=== PATIENT | female | born 1945 | race Caucasian/White ===

== ENCOUNTER → 2018-02-24 | Outpatient (CLI) | payer MEDICARE, OTHER ==
[~2018-02-24] MED LIST: AC325T PO; CALC-250 PO; CLCX200C PO; D50KC PO; DCS100C PO; DPH25C PO; MIRALAX; ORPH100T PO; OXYC-12 PO; OXYC10TA63 PO; POLY119P PO; POLY17PO23 GT; SENN1TAB76 PO; WRF5T PO
--- NOTE | 2018-02-24 15:35 | Diagnostic Imaging Report ---
INDICATION: Osteoporosis. COMPARISON is made with prior exam from 08/21/2011. FINDINGS: Bone mineral analysis of the lumbar spine was performed. The hips were not performed due to hardware. Bone mineral density of the lumbar spine at L2 to L4 is 0.869 with a T score of -2.8. This compares with 0.878 and -2.7. IMPRESSION: Osteoporosis of the lumbar spine. Dictated by: Dictated on workstation # [id number]
== END ==
LOC: RAD 09:18
PROVIDERS: ATTEND Internal Medicine
DX: M81.0 Age-related osteoporosis without current pathological fracture (principal)
CPT/HCPCS: 77080

== ENCOUNTER 2019-05-21 07:44 | Emergency (ER) | payer MEDICARE, OTHER ==
[~2019-05-21] VITALS: Ht 167 cm; Wt 70.4 kg
--- NOTE | 2019-05-21 08:43 | ED Cough/URI ---
General Chief Complaint: Cough/Cold/Flu Symptoms Stated Complaint: COUGH Nursing Triage Note: AMB TO ROOM C/O COUGH CONGESTION WITH FEVER. CALLED HER DR OFFICE WAS GIVEN AMOXIL 500MG ON 05/18 STOPPED TAKING IT BECAUSE SHE THINKS IT IS GIVEING HER BODY ACHES. Sepsis Screen: No Definite Risk Source: patient, family Exam Limitations: no limitations History of Present Illness Date Seen by Provider: May 21, 2019 Time Seen by Provider: 08:38 Initial Comments This 73-year-old white female presents with cough congestion and associated fever of 5 days' duration. Patient was placed on amoxicillin by Dr. Lynn which she took for several days without improvement. Patient states that the sputum as colorful and productive. The patient denies associated headache stiff neck or photophobia. She's had no vomiting or diarrhea. There's been no associated dysuria frequency or flank pain. Past medical history other than orthopedic injuries is essentially unremarkable. Allergies and Home Medications Allergies Coded Allergies: fentanyl (Unverified Allergy, Unknown, 05/04/15) orphenadrine (Verified Allergy, Unknown, 05/04/15) vancomycin (Verified Allergy, Unknown, 05/04/15) Patient Home Medication List Home Medication List Reviewed: Yes Review of Systems Review of Systems Constitutional: No chills; fever, malaise, weakness EENTM: no symptoms reported Respiratory: see HPI, cough, short of breath Cardiovascular: no symptoms reported Gastrointestinal: no symptoms reported Genitourinary: no symptoms reported : No Musculoskeletal: no symptoms reported Skin: no symptoms reported Psychiatric/Neurological: No Symptoms Reported Hematologic/Lymphatic: No Symptoms Reported Immunological/Allergic: no symptoms reported Past Fsbgpdf-Weikwj-Ireuwt Hx Past Med/Social Hx: Reviewed Nursing Past Med/Soc Hx Patient Social History Alcohol Use: Denies Use Recreational Drug Use: No Smoking Status: Never a Smoker Recent Foreign Travel: No Contact w/Someone Who Travel: No Recent Infectious Disease Expo: No Recent Hopitalizations: Yes (for pelvic and ankle fracture) Past Medical History Surgeries: Yes (RIGHT HIP FX/ORIF; RIGHT ANKLE FX/ORIF; HYST/BSO) Breast, Hysterectomy, Oophorectomy, Orthopedic Respiratory: No Cardiac: No Neurological: No 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 oz. 75.068807he; 25.00 BMI Method:Stated General Appearance: WD/WN, no apparent distress Eyes: Bilateral Eye Normal Inspection HEENT: normal ENT inspection Neck: full range of motion, supple Respiratory: decreased breath sounds Cardiovascular: regular rate, rhythm, no murmur Gastrointestinal: normal bowel sounds Extremities: normal range of motion, normal inspection Neurologic/Psychiatric: no motor/sensory deficits, alert Skin: normal color, warm/dry Focused Exam Lactate Level 05/21/19 08:58: Lactic Acid Level 0.64 Lactic Acid Level Laboratory Tests Test 05/21/19 08:58 Lactic Acid Level 0.64 MMOL/L (0.50-2.00) Progress/Results/Core Measures Suspected Sepsis Recent Fever Within 48 Hours: No Infection Criteria Present: None New/Unexplained Altered Menta: No Sepsis Screen: No Definite Risk SIRS Temperature: Pulse: 68 Respiratory Rate: 18 Laboratory Tests 05/21/19 08:58: White Blood Count 4.3 Blood Pressure 104 /64 Mean: 77 05/21/19 08:58: Lactic Acid Level 0.64 Laboratory Tests 05/21/19 08:58: Creatinine 0.72, Platelet Count 238, Total Bilirubin 0.4 Results/Orders Lab Results Laboratory Tests Test 05/21/19 08:58 Range/Units White Blood Count 4.3 4.3-11.0 10^3/uL Red Blood Count 4.51 4.35-5.85 10^6/uL Hemoglobin 12.8 11.5-16.0 G/DL Hematocrit 38 35-52 % Mean Corpuscular Volume 85 80-99 FL Mean Corpuscular Hemoglobin 28 25-34 PG Mean Corpuscular Hemoglobin Concent 33 32-36 G/DL Red Cell Distribution Width 13.2 10.0-14.5 % Platelet Count 238 130-400 10^3/uL Mean Platelet Volume 9.9 7.4-10.4 FL Neutrophils (%) (Auto) 46 42-75 % Lymphocytes (%) (Auto) 40 12-44 % Monocytes (%) (Auto) 10 0-12 % Eosinophils (%) (Auto) 4 0-10 % Basophils (%) (Auto) 1 0-10 % Neutrophils # (Auto) 2.0 1.8-7.8 X 10^3 Lymphocytes # (Auto) 1.7 1.0-4.0 X 10^3 Monocytes # (Auto) 0.4 0.0-1.0 X 10^3 Eosinophils # (Auto) 0.2 0.0-0.3 10^3/uL Basophils # (Auto) 0.0 0.0-0.1 10^3/uL Sodium Level 140 135-145 MMOL/L Potassium Level 4.0 3.6-5.0 MMOL/L Chloride Level 108 H 98-107 MMOL/L Carbon Dioxide Level 21 21-32 MMOL/L Anion Gap 11 5-14 MMOL/L Blood Urea Nitrogen 15 7-18 MG/DL Creatinine 0.72 0.60-1.30 MG/DL Estimat Glomerular Filtration Rate > 60 BUN/Creatinine Ratio 21 Glucose Level 95 70-105 MG/DL Lactic Acid Level 0.64 0.50-2.00 MMOL/L Calcium Level 9.6 8.5-10.1 MG/DL Corrected Calcium 9.6 8.5-10.1 MG/DL Total Bilirubin 0.4 0.1-1.0 MG/DL Aspartate Amino Transf (AST/SGOT) 17 5-34 U/L Alanine Aminotransferase (ALT/SGPT) 16 0-55 U/L Alkaline Phosphatase 62 40-136 U/L Total Protein 6.9 6.4-8.2 GM/DL Albumin 4.0 3.2-4.5 GM/DL My Orders Orders - NIC WALLACE MD Cbc With Automated Diff (05/21/19 08:35) Comprehensive Metabolic Panel (05/21/19 08:35) Blood Culture (05/21/19 08:35) Lactic Acid Analyzer (05/21/19 08:35) Albuterol Pre-Mix Nebs (Rt) (Proventil (05/21/19 21:00) Ns Iv 1000 Ml (Sodium Chloride 0.9%) (05/21/19 08:45) Svn Small Volume Nebulizer (05/21/19 08:35) Chest 1 View, Ap/Pa Only (05/21/19 08:35) Albuterol/Ipra Inhalation Soln (Duoneb I (05/21/19 08:45) Medications Given in ED Current Medications Medications Dose Ordered Sig/Corey Route Start Time Stop Time Status Last Admin Dose Admin Albuterol/ Ipratropium 3 ml STK-MED ONCE .ROUTE 05/21/19 08:45 05/21/19 08:49 DC 05/21/19 09:16 3 ML Vital Signs/I&O 05/21/19 05/21/19 08:00 08:52 Temp 36.8 Pulse 68 Resp 18 B/P (MAP) 104/64 (77) Pulse Ox 96 92 O2 Delivery Room Air Capillary Refill : Less Than 3 Seconds Blood Pressure Mean: 77 POS Progress Note : Time: 10:14 Progress Note The patient's chest x-ray was unremarkable and her CBC was similarly benign. I discussed findings with the patient who would like to take Mucinex [id number] and follow-up with a caregiver tomorrow. Departure Impression Primary Impression: Upper respiratory infection Qualified Codes: J06.9 - Acute upper respiratory infection, unspecified Disposition: HOME, SELF-CARE Condition: Unchanged Departure-Patient Inst. Decision time for Depature: 10:15 Referrals: NIC LYNN MD (PCP/Family) Primary Care Physician MILY GOODEN MD Patient Instructions: Cough, Adult (DC) Add. Discharge Instructions: Tried Mucinex today. Follow-up with Dr. Gooden tomorrow. Return if any problems or questions. All discharge instructions reviewed with patient and/or family. Voiced understanding. NIC WALLACE MD May 21, 2019 08:42 POS
[2019-05-21] MEDS ORDERED: NS IV 1000 ML 1,000 ML IV SCH (08:45)
[2019-05-21] MEDS ORDERED: RT-ALBUTEROL/IPRATROPIUM 3 ML (DUONEB) VIAL ONE (08:45)
[2019-05-21 09:06] LABS: BASOPHILS % (AUTO) 1 % (0-10); EOSINOPHILS # (AUTO) 0.2 10^3/uL (0.0-0.3); EOSINOPHILS % (AUTO) 4 % (0-10); HEMATOCRIT 38 % (35-52); HEMOGLOBIN 12.8 G/DL (11.5-16.0); LYMPHOCYTES # (AUTO) 1.7 X 10^3 (1.0-4.0); LYMPHOCYTES % (AUTO) 40 % (12-44); MEAN CORPUSCULAR HEMOGLOBIN 28 PG (25-34); MEAN CORPUSCULAR HGB CONC 33 G/DL (32-36); MEAN CORPUSCULAR VOLUME 85 FL (80-99); MEAN PLATELET VOLUME 9.9 FL (7.4-10.4); MONOCYTES # (AUTO) 0.4 X 10^3 (0.0-1.0); MONOCYTES % (AUTO) 10 % (0-12); NEUTROPHILS % (AUTO) 46 % (42-75); PLATELET COUNT 238 10^3/uL (130-400); RED CELL DISTRIBUTION WIDTH 13.2 % (10.0-14.5); WHITE BLOOD COUNT 4.3 10^3/uL (4.3-11.0)
[2019-05-21 09:27] LABS: ALANINE AMINOTRANSFERASE 16 U/L (0-55); ALKALINE PHOSPHATASE 62 U/L (40-136); BILIRUBIN,TOTAL 0.4 MG/DL (0.1-1.0); BUN/CREATININE RATIO 21; CALCIUM 9.6 MG/DL (8.5-10.1); CARBON DIOXIDE 21 MMOL/L (21-32); CHLORIDE 108 MMOL/L (98-107); CREATININE SERUM 0.72 MG/DL (0.60-1.30); GFR ESTIMATED > 60; GLUCOSE 95 MG/DL (70-105); SODIUM 140 MMOL/L (135-145); TOTAL PROTEIN 6.9 GM/DL (6.4-8.2)
--- NOTE | 2019-05-21 10:36 | Diagnostic Imaging Report ---
Clinical indication: Patient with cough, congestion and myalgia times approximately one week. Exam: Portable chest x-ray upright view. Comparisons: Portable chest x-ray dated 05/04/2015. Findings: Lungs/pleura: Lungs are clear. There is no pneumothorax. There is no pleural effusion. Mediastinum: Unremarkable. Pulmonary vasculature: Unremarkable. Heart: Unremarkable. Bones/extrathoracic soft tissue: Unremarkable. Impression: There is no radiographic evidence of acute cardiopulmonary process. Dictated by: Dictated on workstation # [id number]
[2019-05-21 11:47] VITALS: BP 117/68
[2019-05-21] MEDS ORDERED: RT-ALBUTEROL SULF 2.5 MG/3 ML PRE-MIX VIAL INH SCH (21:00)
== END 2019-05-21 11:45 | disposition home or self-care (01) ==
LOC: EDUNIT# 07:44 → ER 07:46
DX: J06.9 Acute upper respiratory infection, unspecified (principal); K21.9 Gastro-esophageal reflux disease without esophagitis; Z88.5 Allergy status to narcotic agent; Z88.1 Allergy status to other antibiotic agents; Z88.8 Allergy status to other drugs, medicaments and biological substances; Z90.710 Acquired absence of both cervix and uterus; Z90.722 Acquired absence of ovaries, bilateral
CPT/HCPCS: 36415; 71045; 80053; 83605; 85025; 87040; 94640; 96360

== ENCOUNTER 2019-08-28 11:14 | Outpatient (RCR) | payer MEDICARE, OTHER | END 2019-09-06 | disposition home or self-care (01) | LOC: CR3 11:14 | PROVIDERS: ATTEND Internal Medicine | DX: Z29.8 Encounter for other specified prophylactic measures (principal) ==

== ENCOUNTER → 2020-09-25 | Outpatient (RCR) | payer MEDICARE, OTHER | END | disposition home or self-care (01) | LOC: CR3 08-26 11:43 | PROVIDERS: ATTEND Internal Medicine | DX: Z29.8 Encounter for other specified prophylactic measures (principal) ==

== ENCOUNTER 2020-10-09 11:12 | Outpatient (RCR) | payer MEDICARE, OTHER | END 2020-10-27 | disposition home or self-care (01) | LOC: CR3 11:12 | PROVIDERS: ATTEND Internal Medicine | DX: Z29.8 Encounter for other specified prophylactic measures (principal) ==

== ENCOUNTER → 2021-04-21 | Outpatient (CLI) | payer MEDICARE, OTHER ==
--- NOTE | 2021-04-21 15:16 | Diagnostic Imaging Report ---
INDICATION: Difficulty breathing. EXAMINATION: PA and lateral chest. FINDINGS: There is a small hiatal hernia. The heart size and pulmonary vascularity are normal. The lungs are clear. IMPRESSION: Small hiatal hernia. Dictated by: Dictated on workstation # [id number]
--- NOTE | 2021-04-21 16:00 | Diagnostic Imaging Report ---
INDICATION: Right hip pain FINDINGS: Two views of the right hip show postoperative changes from internal fixation with a dynamic compression device. The fracture appears to have healed in good alignment. There is no acute fracture seen. IMPRESSION: Postoperative changes from internal fixation of an intertrochanteric fracture of the right hip. No acute abnormality is seen. Dictated by: Dictated on workstation # [id number]
== END ==
LOC: RAD 14:24
PROVIDERS: ATTEND Colon & Rectal Surgery
DX: M81.0 Age-related osteoporosis without current pathological fracture (principal); M25.552 Pain in left hip; R07.89 Other chest pain
CPT/HCPCS: 71046; 73502

== ENCOUNTER 2023-01-14 11:57 | Emergency (ER) | payer MEDICARE, OTHER ==
[~2023-01-14] VITALS: Ht 170.1 cm; Wt 68.0 kg
[2023-01-14] MEDS ORDERED: Tetanus/Diphtheria/Pertussis (Acell) ADULT Vaccine 0.5 ML IM ONE (12:15)
--- NOTE | 2023-01-14 12:19 | ED Upper Extremity ---
General Chief Complaint: Laceration Stated Complaint: LT FINGER LACERATION Nursing Triage Note: PT AMB TO RM 7 WITH CC OF LEFT FINGER LAC. PT STATES THAT SHE WAS CUTTING SILICONE AND THE KNIFE SLIPPED AND CAUGHT HER FINGER. Source: patient Exam Limitations: no limitations History of Present Illness Date Seen by Provider: Jan 14, 2023 Time Seen by Provider: 12:15 Initial Comments Patient is a 77-year-old female who presents ED with a laceration to her left index finger. She states 30 minutes ago she was using a utility knife. She states she cut herself while cutting silicone caulking. This resulted in a superficial less than 1 cm laceration. Mild adipose involvement. Bleeding controlled direct pressure. Not on blood thinners. She does report some popping of her left index finger since the injury. She does have a history of osteoarthritis in her joints. Denies history of similar symptoms in the past. She does states her range of motion is intact. She denies any fever, chills, nausea, vomiting, diarrhea. Allergies and Home Medications Allergies Coded Allergies: fentanyl (Unverified Allergy, Unknown, 05/04/15) orphenadrine (Verified Allergy, Unknown, 05/04/15) vancomycin (Verified Allergy, Unknown, 05/04/15) Patient Home Medication List Home Medication List Reviewed: Yes Review of Systems Constitutional: No chills, No diaphoresis, No fever, No malaise EENTM: No hearing loss, No ear pain, No mouth pain, No mouth swelling Respiratory: No cough, No dyspnea on exertion Cardiovascular: No chest pain Gastrointestinal: No abdominal pain, No diarrhea, No nausea, No vomiting Genitourinary: No decreased output, No discharge Musculoskeletal: muscle pain Skin: change in color, other (Finger laceration) All Other Systems Reviewed Negative Unless Noted: Yes Past Bckjhzt-Vbexpp-Yydtsy Hx Patient Social History Tobacco Use?: No Substance use?: No Alcohol Use?: No Past Medical History Surgery/Hospitalization HX: hysterectomy Surgeries: Yes (RIGHT HIP FX/ORIF; RIGHT ANKLE FX/ORIF; HYST/BSO) Breast, Hysterectomy, Oophorectomy, Orthopedic Respiratory: No Cardiac: No Neurological: No 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 oz. 75.400612ar; 23.00 BMI Method:Stated General Appearance: WD/WN, no apparent distress HEENT: PERRL/EOMI, normal ENT inspection, TMs normal, pharynx normal Neck: non-tender, full range of motion, supple Cardiovascular: regular rate, rhythm, no edema, no gallop, no JVD Respiratory: chest non-tender, lungs clear, normal breath sounds, no respiratory distress, no accessory muscle use Gastrointestinal: normal bowel sounds, non tender, soft, no organomegaly Back: normal inspection, no CVA tenderness, no vertebral tenderness Shoulder: normal inspection, non-tender, no evidence of injury Hand: Left, laceration (1 cm laceration to the left lateral palmar index finger. Flexion and extension intact at the DIP, PIP and MCP. She does have some clicking at the PIP joint. No obvious tendon involvement on the laceration. Appears to be superficial with some adipose involvement.) Neurologic/Psychiatric: director of medical staff services II-XII nml as tested, no motor/sensory deficits, alert Skin: other (1 cm laceration to the left lateral index finger.) Procedures/Interventions Wound Location: Upper Extremities Other Wound Location left index Wound Length (cm): 1 Wound's Depth, Shape: superficial, sub Q Wound Explored: clean Irrigated w/ Saline (ccs): 200 Betadine Prep?: Yes Other Closure Supply: Steri Strip 06/17", Mastisol, Wound Adhesive Progress/Results/Core Measures Results/Orders My Orders Orders - TARIK ESPANA Dipht/Pertuss(Acell)/Tet Adult (Dipht/Pe (01/14/23 12:15) Medications Given in ED Current Medications Medications Dose Ordered Sig/Corey Route Start Time Stop Time Status Last Admin Dose Admin Diphtheria/ Tetanus/Acell Pertussis 0.5 ml ONCE ONCE IM 01/14/23 12:15 01/14/23 12:16 DC 01/14/23 12:27 0.5 ML Vital Signs/I&O 01/14/23 12:03 Pulse 68 B/P (MAP) 125/52 (76) Pulse Ox 96 O2 Delivery Room Air Blood Pressure Mean: 76 Departure Communication (PCP) Patient has a 1 similar laceration to her left index finger on the left lateral palmar side. No obvious tendon or muscular involvement. Skin is near approximated. Very minimal adipose involvement. No gaping wound that needs sutures. Cleaned the wound out with normal saline and Shur cleans. Applied Steri-Strips with Dermabond. Patient was placed in finger splint. She does have some catching of the left index finger but also catching it on her right side as well. Likely secondary to her arthritis versus trigger finger. Recommend hand specialist outpatient follow-up which was provided in discharge. If increased redness or swelling to return back to ED. Patient agrees with plan of action. Updated her tetanus. Wound appears clean. Avoid soaking the left finger. Topical Neosporin Impression Primary Impression: Finger laceration Disposition: 01 HOME, SELF-CARE Condition: Stable Departure-Patient Inst. Decision time for Depature: 12:18 Referrals: NIC DEMPSEY MD (PCP/Family) Primary Care Physician NIC DAS DO Patient Instructions: Laceration Repair With Glue ED Add. Discharge Instructions: Keep the area clean. Splint for comfort. Suggest following up with hand specialist for further evaluation for the catching All discharge instructions reviewed with patient and/or family. Voiced understanding. TARIK ESPANA Jan 14, 2023 12:19
[2023-01-14 12:35] VITALS: BP 125/52
== END 2023-01-14 12:36 | disposition home or self-care (01) ==
LOC: EDUNIT# 11:57 → ER 11:59
DX: S61.211A Laceration without foreign body of left index finger without damage to nail, initial encounter (principal); Z23 Encounter for immunization; W26.0XXA Contact with knife, initial encounter
CPT/HCPCS: 12001; 90471; 90715